=== PATIENT | female | born 1970 | race Caucasian/White ===

== ENCOUNTER 2018-08-19 22:40 | Emergency (ER) | payer BC ==
[~2018-08-19] VITALS: Ht 162.6 cm; Wt 70.3 kg
--- NOTE | 2018-08-19 22:52 | NUR ---
PT PRESENTED TO THE ER WITH A C/O ABD PAIN. URINE SAMPLE WAS OBTAINED. PT AMBULATED TO ER #3 WITH A STEADY GAIT.
--- NOTE | 2018-08-19 23:24 | NUR ---
PT IS ON THE MONITOR AND BP IS SLIGHTLY ELEVATED. PT STATED THAT SHE DID NOT EAT ANYTHING TODAY AND DENIES DIARRHEA OR CONSTIPATION.
--- NOTE | 2018-08-19 23:48 | NUR ---
DR. GOYAL IS AT THE BEDSIDE.
[2018-08-20] MEDS ORDERED: MAG HYDROX/AL HYDROX/SIMETH 30 ML UDC PO ONE
[2018-08-20] MEDS ORDERED: MAG HYDROX/AL HYDROX/SIMETH 30 ML UDC ONE (00:07)
[2018-08-20 00:20] LABS: BASOPHILS % (AUTO) 0.4 % (0.0-2.0); EOSINOPHILS % (AUTO) 1.1 % (0.0-6.0); HEMATOCRIT 41 % (33-45); HEMOGLOBIN 13.8 g/dL (11.5-14.8); LYMPHOCYTES # (AUTO) 1.6 /CMM (0.8-4.8); LYMPHOCYTES % (AUTO) 15.6 % (20.0-44.0); MEAN CORPUSCULAR HGB CONC 34 g/dl (31.0-36.0); MEAN CORPUSCULAR VOLUME 94 fL (82-100); MONOCYTES # (AUTO) 0.4 /CMM (0.1-1.30); MONOCYTES % (AUTO) 3.6 % (2.0-12.0); NEUTROPHILS % (AUTO) 79.3 % (43.0-81.0); PLATELET COUNT (AUTO) 264 /CMM (150-450); RED BLOOD CELL COUNT(AUTO) 4.38 MIL/uL (4.0-5.2); WHITE BLOOD COUNT (AUTO) 10.1 K/uL (4.3-11.0)
[2018-08-20 00:33] LABS: CALCIUM, SERUM 9.3 mg/dL (8.5-10.1); CREATININE 0.7 mg/dL (0.6-1.3); POTASSIUM 3.4 mmol/L (3.5-5.1)
[2018-08-20 00:38] LABS: ALBUMIN 3.9 g/dL (3.4-5.0); BILIRUBIN,DIRECT 0.1 mg/dL (0.0-0.2); BILIRUBIN,TOTAL 0.9 mg/dL (0.2-1.0); TOTAL PROTEIN, SERUM 7.8 g/dL (6.4-8.2)
[2018-08-20] MEDS ORDERED: KETOROLAC TROMETHAMINE INJ 30 MG/ML VIAL IV ONE (01:00)
[2018-08-20] MEDS ORDERED: IV NS 0.9% 250 ML IV ONE (01:14)
[2018-08-20] MEDS ORDERED: IOHEXOL-300 100 ML VIAL IV ONE (01:14)
[2018-08-20] MEDS ORDERED: CT SWABBABLE VALVE TRANS SET 1 EA INFUS.SET MC ONE (01:14)
[2018-08-20] MEDS ORDERED: KETOROLAC TROMETHAMINE 15 MG/ML VIAL ONE (01:34)
--- NOTE | 2018-08-20 01:45 | NUR ---
PT APPEARS TO BE RESTING COMFORTABLY.
[2018-08-20] MEDS ORDERED: IV NS 0.9% 1,000 ML BAG IV ONE (02:00)
--- NOTE | 2018-08-20 02:39 | NUR ---
PT REFUSED BLOOD DRAW FOR REPEAT LABS. DR GOYAL NOTIFIED.
--- NOTE | 2018-08-20 03:15 | NUR ---
IV removed. Catheter intact and site benign. Pressure and 4x4 applied to site. No bleeding noted. Patient discharged to home in stable condition. Written and verbal after care instructions given. Patient verbalizes understanding of instruction AND RX. PT'S FRIEND IS DRIVING PT HOME. PT REC'D A COPY OF THE LABS AND THE CT FINDINGS. PT TO RETURN IN THE MORNING TO P/U THE IMAGING DISK. PT DOES NOT WANT TO WAIT. VSS. PT AMBULATED OUT WITH A STEADY GAIT.
[2018-08-20 04:18] VITALS: BP 125/70
== END 2018-08-20 03:15 | disposition home or self-care (01) ==
LOC: ER 22:49
DX: R10.12 Left upper quadrant pain (principal); K86.9 Disease of pancreas, unspecified; R10.13 Epigastric pain; E86.0 Dehydration
CPT/HCPCS: 36415; 74177; 80048; 80076; 83690; 85025; 96361; 96374; 99284; J1885; J7030; J7050; Q9967